=== PATIENT | male | born 1995 | race American Indian/Alaskan Native ===

== ENCOUNTER 2018-03-11 21:43 | Emergency (ER) | payer SELFPAY ==
[2018-03-11 22:24] VITALS: BP 143/77
[2018-03-11 23:52] LABS: Bilirubin,Urine NEG (Negative); Blood,Urine SM (Negative); Color,Urine Yellow (Yellow); Mucus,Urine 3+ /HPF
== END 2018-03-12 01:50 | disposition left against medical advice (07) ==
LOC: ED 21:43
DX: R36.9 Urethral discharge, unspecified (principal); Z53.21 Procedure and treatment not carried out due to patient leaving prior to being seen by health care provider
CPT/HCPCS: 81001